=== PATIENT | female | born 1980 | race Caucasian/White ===

== ENCOUNTER 2018-10-14 20:20 | Inpatient (IN) | payer OTHER ==
[~2018-10-14] VITALS: Ht 162.6 cm; Wt 117.0 kg
[2018-10-14 22:05] LABS: BASOPHILS ABSOLUTE AUTO 0.08 K/mm3 (0.00-0.23); BASOPHILS PERCENT AUTO 1 % (0-2); EOSINOPHILS ABSOLUTE AUTO 0.25 K/mm3 (0.00-0.68); EOSINOPHILS PERCENT AUTO 2 % (0-6); Hematocrit 43.1 % (33.0-51.0); Hemoglobin 13.4 g/dL (11.5-16.0); IMMATURE GRAN ABSOLUTE AUTO 0.05 K/mm3 (0.00-0.10); IMMATURE GRAN PERCENT AUTO 0 % (0-1); LYMPHOCYTES ABSOLUTE AUTO 2.64 K/mm3 (0.84-5.20); LYMPHOCYTES PERCENT AUTO 20 % (21-46); MONOCYTES PERCENT AUTO 5 % (4-13); Mean Corpuscular HGB 28.8 pg (26.0-34.0); Mean Corpuscular HGB Conc 31.1 g/dL (31.5-36.5); Mean Corpuscular Volume 93 fL (80-100); Mean Platelet Volume 9.3 fL (9.1-12.4); NEUTROPHILS PERCENT AUTO 73 % (41-73); Platelet Count 367 K/mm3 (150-400); RDW Coefficient Variation 14.6 % (11.7-14.2); RDW Standard Deviation 49.5 fL (35.1-46.3); Red Blood Cell Count 4.66 M/mm3 (3.80-5.20); White Blood Cell Count 13.52 K/mm3 (4.00-11.30)
[2018-10-14 22:18] LABS: Alanine Aminotransfer (ALT/SGP 28 U/L (12-78); Albumin, Blood 3.3 g/dL (3.4-5.0); Albumin/Globulin Ratio 0.7 (0.8-1.8); Alk Phos 106 U/L (50-136); Anion Gap 8 mmol/L (6-16); Aspartate Aminotrans (AST/SGOT 37 U/L (12-37); Beta HCG, Quantitative, Serum <1 mIU/mL (0-3); Bilirubin, Total 0.4 mg/dL (0.1-1.0); Blood Urea Nitrogen 13 mg/dL (8-24); Bun/Creatinine Ratio 18.4 (12.0-20.0); CO2, Blood 18 mmol/L (21-32); Calcium, Blood 8.6 mg/dL (8.5-10.1); Chloride, Blood 110 mmol/L (98-108); Creatinine, Blood 0.71 mg/dL (0.40-1.00); Globulin, Blood 4.8 g/dL (2.2-4.0); Glomerular Filtration Rate >60 (60-); Glucose, Blood 94 mg/dL (70-99); Potassium, Blood 4.5 mmol/L (3.5-5.5); Sodium, Blood 136 mmol/L (136-145); Total Protein, Blood 8.1 g/dL (6.4-8.2)
[2018-10-14] MEDS ORDERED: Tab-A-Vite1 EACH PO (22:36)
[2018-10-14] MEDS ORDERED: COMBIVENT RESPIM4 GM INH (22:36)
[2018-10-14] MEDS ORDERED: ALBU2.5V5 NEB (22:37)
[2018-10-14] MEDS ORDERED: SPIR25 PO (22:38)
[2018-10-14] MEDS ORDERED: Budeprion Xl300 MG PO (22:38)
[2018-10-15] MEDS ORDERED: OMEPRAZOLE20 MG PO (00:11)
[2018-10-15] MEDS ORDERED: Lisinopril2.5 MG PO (00:22)
[2018-10-15] MEDS ORDERED: ZESTORETIC 20-121 EA (00:23)
[2018-10-15 02:10] LABS: Adenovirus Not Detected (NOT DETECT); Coronavirus 229E Not Detected (NOT DETECT); Coronavirus HKU1 Not Detected (NOT DETECT); Coronavirus NL63 Not Detected (NOT DETECT); Coronavirus OC43 Not Detected (NOT DETECT); Human Metapneumovirus Not Detected (NOT DETECT)
[2018-10-15 02:11] LABS: Bordetella pertussis Not Detected (NOT DETECT); Chlamydophila pneumoniae Not Detected (NOT DETECT); Human Rhinovirus/Enterovirus Detected (NOT DETECT); Influenza A Not Detected (NOT DETECT); Influenza A/2009-H1 Not Detected (NOT DETECT); Influenza A/H1 Not Detected (NOT DETECT); Influenza A/H3 Not Detected (NOT DETECT); Influenza B Not Detected (NOT DETECT); Mycoplasma pneumoniae Not Detected (NOT DETECT); Parainfluenza Virus 1 Not Detected (NOT DETECT); Parainfluenza Virus 2 Not Detected (NOT DETECT); Parainfluenza Virus 3 Not Detected (NOT DETECT); Parainfluenza Virus 4 Not Detected (NOT DETECT); Respiratory Syncytial Virus Not Detected (NOT DETECT)
--- NOTE | 2018-10-15 04:34 | NUR ---
SHIFT SUMMARY PT ADMITTED FOR ASTHMA EXACERBATION. IS ALERT AND ORIENTED. UP INDEPENDENTLY TO BSC, GETS MORE DYSPNEIC WITH EXERTION. PT IS ON RA, LUNG SOUNDS ARE TIGHT WITH INSPRIRATORY AND EXPIRATORY WHEEZES. NO SKIN ISSUES OR BREAKDOWN NOTED. PT HAS RECEIVED 2 NEB TREATMENTS PER RT SINCE COMING TO MEDICAL FLOOR. TELE IN PLACE AND IS RUNNING SINUS TACH AT 119. RESPIRATIONS ARE RANGING FROM 22-26. WILL CONTINUE TO MONITOR.
[2018-10-15 04:51] LABS: Hematocrit 41.7 % (33.0-51.0); Hemoglobin 12.6 g/dL (11.5-16.0); Mean Corpuscular HGB 28.6 pg (26.0-34.0); Mean Corpuscular HGB Conc 30.2 g/dL (31.5-36.5); Mean Corpuscular Volume 95 fL (80-100); Mean Platelet Volume 8.9 fL (9.1-12.4); Platelet Count 328 K/mm3 (150-400); RDW Coefficient Variation 14.6 % (11.7-14.2); RDW Standard Deviation 50.9 fL (35.1-46.3); White Blood Cell Count 16.91 K/mm3 (4.00-11.30)
[2018-10-15 05:04] LABS: Alanine Aminotransfer (ALT/SGP 22 U/L (12-78); Albumin, Blood 3.2 g/dL (3.4-5.0); Albumin/Globulin Ratio 0.7 (0.8-1.8); Alk Phos 94 U/L (50-136); Anion Gap 10 mmol/L (6-16); Aspartate Aminotrans (AST/SGOT 15 U/L (12-37); Bilirubin, Total 0.2 mg/dL (0.1-1.0); Blood Urea Nitrogen 9 mg/dL (8-24); Bun/Creatinine Ratio 13.7 (12.0-20.0); CO2, Blood 19 mmol/L (21-32); Calcium, Blood 8.4 mg/dL (8.5-10.1); Chloride, Blood 111 mmol/L (98-108); Creatinine, Blood 0.66 mg/dL (0.40-1.00); Globulin, Blood 4.4 g/dL (2.2-4.0); Glomerular Filtration Rate >60 (60-); Glucose, Blood 183 mg/dL (70-99); Potassium, Blood 3.5 mmol/L (3.5-5.5); Sodium, Blood 140 mmol/L (136-145); Total Protein, Blood 7.6 g/dL (6.4-8.2)
--- NOTE | 2018-10-15 18:09 | NUR ---
SHIFT SUMMARY. A&OX4, INDEPENDENT IN ROOM. PT WITH REPORT OF DYSPNEA WITH EXERTION, SPO2 GREATER THAN 92% ON ROOM AIR, PT GIVEN O2 2L NC FOR USE WITH EXERTION, PT REPORTS DECREASED DYSPNEA WITH EXERTION WITH USE OF 02. PT WITH WHEEZES T/O, LUNGS TIGHT, OCCASIONAL NONPRODUCTIVE COUGH. PT C/O H/A THIS AFTERNOON, NOT RELEAVED WITH AP[facility], DR. REEDER NOTIFIED AND RECIEVED ORDERS FOR EXCEDRIN, PT REPORTED RELIEF WITH EXCEDRIN. PT C/O GASTRIC REFLUX, REPORTED TAKING PRILOSEC BID, ONLY ORDERED IN AM. DR. REEDER NOTIFIED, RECIEVED ORDERS TO CHANGE PRILOSEC TO BID AND MAALOX Q6P. MAALOX GIVEN, PT DID NOT TOLERATE FLAVOR WELL. TEN MINUTES AFTER MAALOX GIVEN PT SPONTANEOUSLY VOMITTED 500CC, THIS WAS SHORTLY AFTER LUNCH. PRN ZOFRAN GIVEN, PT REPORTED RELIEF.
[2018-10-16 04:57] LABS: Alanine Aminotransfer (ALT/SGP 22 U/L (12-78); Albumin, Blood 3.1 g/dL (3.4-5.0); Albumin/Globulin Ratio 0.7 (0.8-1.8); Alk Phos 84 U/L (50-136); Anion Gap 10 mmol/L (6-16); Aspartate Aminotrans (AST/SGOT 25 U/L (12-37); Bilirubin, Total 0.5 mg/dL (0.1-1.0); Blood Urea Nitrogen 10 mg/dL (8-24); Bun/Creatinine Ratio 16.7 (12.0-20.0); CO2, Blood 22 mmol/L (21-32); Calcium, Blood 8.9 mg/dL (8.5-10.1); Chloride, Blood 108 mmol/L (98-108); Globulin, Blood 4.3 g/dL (2.2-4.0); Glomerular Filtration Rate >60 (60-); Glucose, Blood 142 mg/dL (70-99); Potassium, Blood 4.1 mmol/L (3.5-5.5); Sodium, Blood 140 mmol/L (136-145); Total Protein, Blood 7.4 g/dL (6.4-8.2)
[2018-10-16 05:36] LABS: BASOPHILS ABSOLUTE AUTO 0.01 K/mm3 (0.00-0.23); BASOPHILS PERCENT AUTO 0 % (0-2); EOSINOPHILS PERCENT AUTO 0 % (0-6); Hematocrit 37.8 % (33.0-51.0); Hemoglobin 12.2 g/dL (11.5-16.0); IMMATURE GRAN ABSOLUTE AUTO 0.17 K/mm3 (0.00-0.10); IMMATURE GRAN PERCENT AUTO 1 % (0-1); LYMPHOCYTES ABSOLUTE AUTO 0.72 K/mm3 (0.84-5.20); LYMPHOCYTES PERCENT AUTO 5 % (21-46); MONOCYTES ABSOLUTE AUTO 0.58 K/mm3 (0.16-1.47); MONOCYTES PERCENT AUTO 4 % (4-13); Mean Corpuscular HGB 28.4 pg (26.0-34.0); Mean Corpuscular HGB Conc 32.3 g/dL (31.5-36.5); Mean Corpuscular Volume 88 fL (80-100); NEUTROPHILS ABSOLUTE AUTO 13.88 K/mm3 (1.96-9.15); NEUTROPHILS PERCENT AUTO 90 % (41-73); Platelet Count 363 K/mm3 (150-400); RDW Coefficient Variation 14.8 % (11.7-14.2); RDW Standard Deviation 47.7 fL (35.1-46.3); White Blood Cell Count 15.36 K/mm3 (4.00-11.30)
--- NOTE | 2018-10-16 07:20 | NUR ---
SHIFT SUMMARY PT C/O HERNANDEZ AND MEDICATED PER EMAR. SHE SAID SHE DIDN'T USE ANY O2 LAST NIGHT. INDEPENDENT TO BA. ABLE TO SLEEP T/O NIGHT. CALL LIGHT IN REACH.
--- NOTE | 2018-10-16 15:16 | NUR ---
OBSERVED PT WITH CLOUDY URINE, REPORTS OF PAIN IN THE BLADDER REGION. DR. REEDER PLACED ORDERS FOR U/A WITH C&S IF INDICATED.
[2018-10-16 16:23] LABS: Source, Urine Clean Catch
[2018-10-16 16:30] LABS: Bilirubin, Urine Neg (Neg); Blood, Urine Neg (Neg); Glucose Qualitative, Urine Neg (Neg); Ketones, Urine Neg (Neg); Leukocyte Esterase, Urine Neg (Neg); Nitrite, Urine Neg (Neg); Protein, Urine Neg (Neg); Urobilinogen, Urine NORM (Normal)
[2018-10-16 16:45] LABS: Appearance, Urine Clear (Clear); Color, Urine Yellow (P-Yellow)
--- NOTE | 2018-10-16 19:06 | NUR ---
SHIFT SUMMARY. PT REPORTS IMPROVED INSPIRATION AND OVERAL BREATHING. LUNGS WITH EXPIRATORY WHEEZES, INTENSITY OF WHEEZES HAVE DECREASED SIGNIFICANTLY SINCE YESTERDAY. PT DENIES PAIN, N/V. PT HAD SHOWER THIS SHIFT. NO NEW CHANGES OR CONCERNS.
--- NOTE | 2018-10-17 03:30 | NUR ---
38 YEAR OLD FEMALE WITH ACUTE ASTHMA EPISODE CONTINUES ON ROOM AIR WITH SOME WHEEZING ON IV STEROIDS Q 6 HOURS. CO BLADDER SUPRAPUBIC TENDERNESS, UA WAS SENT AND NEG FOR UTI. TYLENOL AND KPAD HAD HELPFUL EFFECT. ATTEMPTING TO COLLOECT SPUTUM SAMLE NO ADEQUATE SAMPLE OBTAINED. DISCOURAGE MARIJUANA SMOKING.
[2018-10-17 04:55] LABS: BASOPHILS ABSOLUTE AUTO 0.01 K/mm3 (0.00-0.23); BASOPHILS PERCENT AUTO 0 % (0-2); EOSINOPHILS PERCENT AUTO 0 % (0-6); Hematocrit 38.2 % (33.0-51.0); IMMATURE GRAN ABSOLUTE AUTO 0.18 K/mm3 (0.00-0.10); IMMATURE GRAN PERCENT AUTO 1 % (0-1); LYMPHOCYTES ABSOLUTE AUTO 0.98 K/mm3 (0.84-5.20); LYMPHOCYTES PERCENT AUTO 8 % (21-46); MONOCYTES ABSOLUTE AUTO 0.43 K/mm3 (0.16-1.47); MONOCYTES PERCENT AUTO 3 % (4-13); Mean Corpuscular HGB 28.2 pg (26.0-34.0); Mean Corpuscular HGB Conc 31.4 g/dL (31.5-36.5); Mean Corpuscular Volume 90 fL (80-100); Mean Platelet Volume 8.8 fL (9.1-12.4); NEUTROPHILS ABSOLUTE AUTO 11.07 K/mm3 (1.96-9.15); NEUTROPHILS PERCENT AUTO 87 % (41-73); Platelet Count 356 K/mm3 (150-400); RDW Standard Deviation 49.4 fL (35.1-46.3); Red Blood Cell Count 4.26 M/mm3 (3.80-5.20); White Blood Cell Count 12.67 K/mm3 (4.00-11.30)
[2018-10-17 05:19] LABS: Anion Gap 7 mmol/L (6-16); Blood Urea Nitrogen 19 mg/dL (8-24); Bun/Creatinine Ratio 23.8 (12.0-20.0); CO2, Blood 27 mmol/L (21-32); Chloride, Blood 105 mmol/L (98-108); Glomerular Filtration Rate >60 (60-); Glucose, Blood 147 mg/dL (70-99); Potassium, Blood 3.8 mmol/L (3.5-5.5); Sodium, Blood 139 mmol/L (136-145)
[2018-10-17] MEDS ORDERED: Pulmicort0.5 MG/2 M INH (11:24)
[2018-10-17] MEDS ORDERED: PRED20 PO (11:24)
--- NOTE | 2018-10-17 16:18 | NUR ---
DISCHARGE NOTE: PT HAS BEEN ALERT AND ORIENTED THROUGHOUT THIS SHIFT. PT HAS BEEN SITTING CALMLY IN BED. PT DISCHARGED HOME WITH MOTHER TRANSPORTATION. PT TRANSFERED TO VEHICLE BY WHEELCHAIR. BELONGINGS TO VEHICLE WITH PT. PT PROVIDED WITH DISCHARGE INSTRUCTIONS AND FOLLOW-UP APPOINTMENT. PT'S MOTHER HAD ALREADY PICKED UP HOME MEDICATIONS FROM [facility].
== END 2018-10-17 16:08 | disposition home or self-care (01) | DRG 203 ==
LOC: ER 20:20 → MEDS 23:01 → ENPENDDIS 10-17 10:42 → MEDS 10-17 16:08
PROVIDERS: Emergency Medicine; Internal Medicine; ADMIT Internal Medicine
DX: J45.901 Unspecified asthma with (acute) exacerbation (principal); K21.9 Gastro-esophageal reflux disease without esophagitis; F12.20 Cannabis dependence, uncomplicated; B97.89 Other viral agents as the cause of diseases classified elsewhere
CPT/HCPCS: 36415; 71045; 80048; 80053; 81003; 84145; 84702; 85025; 85027; 87486; 87581; 87633; 87798; 93005; 93010; 94640; 94760; 96361; 96374; 99285-25; J1650; J2405; J2930; J7120

== ENCOUNTER → 2018-10-29 | Outpatient (CLI) | payer OTHER ==
[~2018-10-29] MED LIST: ALBU2.5V5 NEB; Budeprion Xl300 MG PO; COMBIVENT RESPIM4 GM INH; Lisinopril2.5 MG PO; OMEPRAZOLE20 MG PO; PRED20 PO; Pulmicort0.5 MG/2 M INH; SPIR25 PO; Tab-A-Vite1 EACH PO; ZESTORETIC 20-121 EA
[2018-10-31 14:07] LABS: HPV 16 Negative (Negative); HPV 18 Negative (Negative); HPV OTHER HR TYPES Negative (Negative)
== END ==
LOC: LAB SHORT 16:00 → LAB 16:00
PROVIDERS: Nurse Practitioner Family
DX: Z12.4 Encounter for screening for malignant neoplasm of cervix (principal)
CPT/HCPCS: 87070; 87205; 87624; G0145

== ENCOUNTER → 2023-07-10 | Outpatient (CLI) | payer OTHER | END | disposition home or self-care (01) | LOC: LAB SHORT 07:35 → LAB 07:35 | DX: M89.8X7 Other specified disorders of bone, ankle and foot (principal); M79.671 Pain in right foot; M24.074 Loose body in right toe joint(s); I70.213 Atherosclerosis of native arteries of extremities with intermittent claudication, bilateral legs; G58.9 Mononeuropathy, unspecified; G90.50 Complex regional pain syndrome I, unspecified | CPT/HCPCS: 88305; 88311 ==